=== PATIENT | male | born 1985 | race Caucasian/White ===

== ENCOUNTER → 2018-12-19 | Outpatient (CLI) | payer OTHER | LOC: CIMAGING 16:46 | PROVIDERS: ATTEND Internal Medicine | DX: S60.00XA Contusion of unspecified finger without damage to nail, initial encounter (principal); W19.XXXA Unspecified fall, initial encounter; Y92.9 Unspecified place or not applicable; Y93.9 Activity, unspecified; Y99.0 Civilian activity done for income or pay | CPT/HCPCS: 73140-PO ==